=== PATIENT | male | born 1950 | race Caucasian/White ===

== ENCOUNTER → 2018-07-03 | Outpatient (CLI) | payer OTHER, MEDICAID | END | disposition home or self-care (01) | LOC: US 09:49 | DX: K40.90 Unilateral inguinal hernia, without obstruction or gangrene, not specified as recurrent (principal) ==

== ENCOUNTER → 2018-08-06 | Outpatient (CLI) | payer OTHER, MEDICAID | END | disposition home or self-care (01) | LOC: US 13:40 | DX: N40.0 Benign prostatic hyperplasia without lower urinary tract symptoms (principal); C61 Malignant neoplasm of prostate ==

== ENCOUNTER → 2018-10-23 | Outpatient (CLI) | payer OTHER, MEDICAID ==
[~2018-10-23] MED LIST: ASPIRIN ADULT L81 M1 PO; EFFIENT10 M1 PO; FLOMAX0.4 MG PO; ISORDIL40 MG PO; LIPITOR40 MG PO; NORVASC2.5 MG PO; TYLOPHEN500 M2 PO
[2018-10-23 11:59] LABS: BASO # 0.1 10*3/uL (0.0-0.1); BASO % 0.9 % (0.0-1.0); EOS # 0.1 10*3/uL (0.0-0.4); EOS % 1.3 % (1.0-4.0); HEMATOCRIT 49.4 % (42.0-52.0); HEMOGLOBIN 16.3 g/dl (14.0-18.0); LYMPH # 1.6 10*3/uL (1.3-4.4); LYMPH % 16.8 % (27.0-41.0); MEAN CELL VOLUME 94.6 fl (80.0-94.0); MEAN CORPUSCULAR HGB 31.2 pg (27.0-31.0); MEAN PLATELET VOLUME 9.5 fl (9.6-12.3); MONO # 0.7 10*3/uL (0.1-1.0); NEUT # 6.9 10*3/uL (2.3-7.9); NEUT % 73.7 % (47.0-73.0); PLATELET COUNT AUTOMATED 313 10*3/uL (130-400); RED BLOOD COUNT 5.22 10*6/uL (4.50-5.90); RED CELL DISTRI WIDTH 13.2 % (0-14.5); WHITE BLOOD COUNT 9.4 10*3/uL (4.8-10.8)
[2018-10-23 12:29] LABS: ALBUMIN 3.9 gm/dl (3.1-4.5); ALKALINE PHOSPHATASE 54 U/L (45-117); BUN 19 mg/dl (7-24); CHLORIDE 105 mmol/L (98-107); CREATININE 1.01 mg/dL (0.70-1.30); POTASSIUM 4.9 mmol/L (3.5-5.1); SGOT/AST 15 IU/L (3-35); SGPT/ALT 26 U/L (12-78); SODIUM 139 mmol/L (136-145); TOTAL PROTEIN 7.8 gm/dL (6.4-8.2)
[2018-10-24 08:11] LABS: PROSTATE SPECIFIC AG FREE 0.52 ng/mL; PROSTATE SPECIFIC AG, SERUM 5.1 ng/mL (0.0-4.0)
== END | disposition home or self-care (01) ==
LOC: LAB 10:22
PROVIDERS: Urology
DX: K40.90 Unilateral inguinal hernia, without obstruction or gangrene, not specified as recurrent (principal); J43.9 Emphysema, unspecified; I10 Essential (primary) hypertension; C61 Malignant neoplasm of prostate; Z87.891 Personal history of nicotine dependence

== ENCOUNTER → 2019-05-28 | Day surgery (SDC) | payer OTHER, MEDICAID ==
[2019-05-24 13:34] VITALS: BP 109/64
[2019-05-24 14:50] LABS: BASO # 0.1 10*3/uL (0.0-0.1); BASO % 0.6 % (0.0-1.0); EOS # 0.1 10*3/uL (0.0-0.4); HEMATOCRIT 46.1 % (42.0-52.0); HEMOGLOBIN 15.4 g/dl (14.0-18.0); LYMPH # 1.9 10*3/uL (1.3-4.4); LYMPH % 18.2 % (27.0-41.0); MEAN CELL VOLUME 94.3 fl (80.0-94.0); MEAN CORPUSCULAR HGB 31.5 pg (27.0-31.0); MEAN CORPUSCULAR HGB CONC 33.4 g/dl (33.0-37.0); MEAN PLATELET VOLUME 9.7 fl (9.6-12.3); MONO # 0.8 10*3/uL (0.1-1.0); MONO % 7.7 % (3.0-9.0); NEUT # 7.6 10*3/uL (2.3-7.9); PLATELET COUNT AUTOMATED 325 10*3/uL (130-400); RED BLOOD COUNT 4.89 10*6/uL (4.50-5.90); RED CELL DISTRI WIDTH 12.9 % (0-14.5); WHITE BLOOD COUNT 10.5 10*3/uL (4.8-10.8)
[2019-05-24 15:02] LABS: BUN 17 mg/dl (7-24); CHLORIDE 106 mmol/L (98-107); CREATININE 1.06 mg/dL (0.70-1.30); POTASSIUM 4.2 mmol/L (3.5-5.1); SODIUM 140 mmol/L (136-145)
[~2019-05-28] VITALS: Ht 180.3 cm; Wt 71.2 kg
[~2019-05-28] MED LIST changes: +COLACE100 MG PO; +ISOSORBIDE DINI30 MG PO; +NORCO 5-325 TA1 EACH PO
--- NOTE | ~2019-05-28 | EKG ---
[place], [place] ELECTROCARDIOGRAM REPORT NAME: SHANIA LEVY UNIT #: [id number] ROOM: DOCTOR: EPIPHANY DRAFT REPORT BIRTHDATE: [birth year] [facility] Test Date: 2019-05-24 Test Time: 14:36:40 Pat Name: SHANIA LEVY Department: Room: Gender: Medical Lab Scientist: Romina Miranda : 1950 Requested By: CALEB DAO Order Number: [id number] Reading MD: José Manuel Anderson MD Measurements Intervals [place] Rate: 51 P: 80 NE: 160 QRS: 82 QRSD: 81 T: 69 QT: 430 QTc: 397 Interpretive Statements Sinus bradycardia Otherwise normal Compared to ECG 10/23/2018 11:58:47 No significant changes Electronically Signed On 05-25-2019 7:55:38 PDT by José Manuel Anderson MD CM:EKGRPT:ELECTROCARDIOGRAM REPORT [id number] CALEB DAO MD EPIPHANY DRAFT REPORT CALEB DAO MD
[2019-05-28 15:42] VITALS: BP 168/93
[2019-05-28 15:57] VITALS: BP 146/75
[2019-05-28 16:12] VITALS: BP 167/91
[2019-05-28 16:27] VITALS: BP 155/81
[2019-05-28 16:42] VITALS: BP 136/82
== END | disposition home or self-care (01) ==
LOC: SDC 05-23 14:00
DX: K40.90 Unilateral inguinal hernia, without obstruction or gangrene, not specified as recurrent (principal); I25.10 Atherosclerotic heart disease of native coronary artery without angina pectoris; I10 Essential (primary) hypertension; E78.5 Hyperlipidemia, unspecified; E78.00 Pure hypercholesterolemia, unspecified; I25.2 Old myocardial infarction; Z87.891 Personal history of nicotine dependence; Z98.890 Other specified postprocedural states; Z79.84 Long term (current) use of oral hypoglycemic drugs

== ENCOUNTER → 2024-04-10 | Outpatient (CLI) | payer OTHER, MEDICAID | END | disposition home or self-care (01) | LOC: RAD 12:02 | PROVIDERS: ATTEND Nurse Practitioner | DX: J44.1 Chronic obstructive pulmonary disease with (acute) exacerbation (principal); Z95.1 Presence of aortocoronary bypass graft ==